=== PATIENT | male | born 1975 | race Caucasian/White ===

== ENCOUNTER 2023-02-16 12:43 | Emergency (ER) | payer BC ==
[~2023-02-16] VITALS: Ht 175.3 cm; Wt 104.3 kg
[2023-02-16 13:24] VITALS: BP 158/74; TEMP 98.7; O2SAT 97
== END 2023-02-16 14:58 | disposition left against medical advice (07) ==
LOC: ER 12:53
DX: B34.9 Viral infection, unspecified (principal); Z20.822 Contact with and (suspected) exposure to COVID-19
CPT/HCPCS: 99283; 87426; 87804 ×2; C9803

== ENCOUNTER 2023-03-18 08:14 | Emergency (ER) | payer BC, MEDICAID ==
[~2023-03-18] VITALS: Ht 175.3 cm; Wt 99.8 kg
[2023-03-18 08:33] VITALS: BP 133/92; TEMP 98
[2023-03-18 09:17] VITALS: O2SAT 98
== END 2023-03-18 09:17 | disposition home or self-care (01) ==
LOC: ER 08:17
DX: R19.7 Diarrhea, unspecified (principal)

== ENCOUNTER 2024-01-04 14:40 | Emergency (ER) | payer BC, MEDICAID ==
[~2024-01-04] VITALS: Ht 175.3 cm; Wt 99.8 kg
[2024-01-04 15:07] VITALS: BP 169/94; TEMP 97.9; O2SAT 100
[2024-01-04] MEDS ORDERED: SULF1TAB48 PO (15:12)
[2024-01-04] MEDS ORDERED: CEPH-570 PO (15:12)
== END 2024-01-04 15:45 | disposition home or self-care (01) ==
LOC: ER 14:43
DX: L02.211 Cutaneous abscess of abdominal wall (principal); Z79.899 Other long term (current) drug therapy; Z60.2 Problems related to living alone